=== PATIENT | female | born 1980 | race Caucasian/White ===

== ENCOUNTER 2016-08-16 18:10 | Emergency (ER) | payer BC, MEDICAID ==
[~2016-08-16] VITALS: Ht 172.7 cm; Wt 78.6 kg
[~2016-08-16 18:10] MED LIST: HYDR-3498 PO; PANT40TA3 PO; PREN1TAB17 PO; PREN1TAB49 PO
[2016-08-16 18:13] VITALS: Ht 172.7 cm; Wt 78.6 kg
[2016-08-16] MEDS ORDERED: SOD CHLORIDE 0.9% 1,000 ML IV STA (18:31)
[2016-08-16] MEDS ORDERED: KETOROLAC 30 MG INJ IV STA (18:31)
[2016-08-16] MEDS ORDERED: DIPHENHYDRAMINE 50 MG INJ IV STA (18:31)
[2016-08-16] MEDS ORDERED: METOCLOPRAMIDE 10 MG INJ IV STA (18:31)
[2016-08-16 18:54] LABS: ADD SCAN DIFF NO
[2016-08-16 18:57] LABS: BASOPHIL # 0.1 10^3/ul (0.0-0.1); BASOPHILS % 0.7 % (0.0-2.0); EOSINOPHILS # 0.3 10^3/ul (0.0-0.5); EOSINOPHILS % 3.3 % (0.0-7.0); HEMATOCRIT 39.2 % (37.0-47.0); HEMOGLOBIN 12.6 g/dl (12.0-16.0); LYMPHOCYTES # 2.8 10^3/ul (0.8-2.9); LYMPHOCYTES % 33.2 % (15.0-51.0); MEAN CORPUSCULAR HEMOGLOBIN 29.3 pg (29.0-33.0); MEAN CORPUSCULAR HGB CONC 32.1 g/dl (32.0-37.0); MEAN CORPUSCULAR VOLUME 91.2 fl (82.0-101.0); MONOCYTE # 0.5 10^3/ul (0.3-0.9); MONOCYTES % 5.9 % (0.0-11.0); NEUTROPHIL # 4.7 10^3/ul (1.6-7.5); NEUTROPHILS % 56.7 % (39.0-77.0); PLATELET COUNT 247 10^3/UL (140-415); RED CELL DISTRIBUTION WIDTH 13.7 % (11.5-14.5); WHITE BLOOD COUNT 8.3 10^3/ul (4.8-10.8)
[2016-08-16 19:17] LABS: CALCIUM 9.5 mg/dl (8.4-10.2); CREATININE 0.75 mg/dl (0.44-1.00); POTASSIUM 3.3 mmol/L (3.5-5.1)
--- NOTE | 2016-08-16 19:18 | ERD ---
ER Documentation Chief Complaint Date/Time DATE: 08/16/16 TIME: 19:14 Chief Complaint Complains of left eye pain with a headache HPI This is a 35-year-old female presents to the ER with left-sided headache that radiates around her left eye. Patient states that headache started this morning. Patient states that headache is stabbing in nature, pain has been constant and per patient severe. She does admit to bilateral photophobia. She admits to some nausea however denies vomiting. Patient denies any eye trauma, eye redness, eye discharge. She denies any vision changes, vision loss, seeing halos around lights, floaters. Patient does not have any cough or cold symptoms. She denies any nasal discharge. Patient denies any head trauma. She denies any upper or lower extremity numbness, tingling, weakness. ROS 12 point review of systems was done, all negative except per HPI. Medications Home Meds Active Scripts Ondansetron Hcl* (Zofran*) 4 Mg Tab, 4 MG PO Q4H Y for NAUSEA AND OR VOMITING for 3 Days, TAB Prov:ARSALAN MONTANA 08/16/16 Naproxen* (Naprosyn*) 500 Mg Tablet, 500 MG PO BID Y for PAIN AND/OR INFLAMMATION, #30 TAB Prov:ARSALAN MONTANA 08/16/16 Hydrocodone Bit-Acetaminophen* ([place]*) 5-325 Mg Tab, 1 TAB PO Q4H Y for PAIN, # 14 TAB Prov:MADELINE CUTLER MD 12/07/14 Pantoprazole* (Protonix*) 40 Mg Tablet.dr, 40 MG PO DAILY, #20 TAB Prov:MADELINE CUTLER MD 12/07/14 Reported Medications Vit-Iron Fumarate-FA ( Tablet) 1 Each Tablet, 1 EACH PO DAILY 09/20/12 Vits W-Ca,Fe,Fa(<1MG) () 1 Tab Tablet, 1 TAB PO DAILY 06/15/12 [None] No Conflict Check 03/04/09 Allergies Allergies: Coded Allergies: No Known Allergies (Verified Allergy, Mild, 08/16/16) PMhx/Soc History of Surgery: No Anesthesia Reaction: No Hx Neurological Disorder: No Hx Respiratory Disorders: No Hx Cardiac Disorders: No Hx Psychiatric Problems: No Hx Miscellaneous Medical Probl: No Hx Alcohol Use: No Hx Substance Use: No Hx Tobacco Use: No Smoking Status: Unknown if ever smoked Physical Exam Vitals Vital Signs Date Time Temp Pulse Resp B/P Pulse Ox O2 Delivery O2 Flow Rate FiO2 08/16/16 18:13 98.3 75 20 117/70 100 Physical Exam GENERAL: The patient is well developed and appropriate for usual state of health , in no apparent distress. HEENT: Atraumatic. Conjunctivae are pink. Pupils equal, round, and reactive to light. Extraocular muscles are grossly intact. Bilateral tympanic membranes are clear with no evidence of erythema, bulging or perforation. No sinus tenderness. NECK: C-spine is soft and supple. There is no cervical lymphadenopathy. CHEST: Clear to auscultation bilaterally. There are no rales, wheezes or rhonchi. HEART: Regular rate and rhythm. No murmurs, clicks, rubs or gallops. EXTREMITIES: Equal pulses bilaterally. There is no peripheral clubbing, cyanosis or edema. No focal swelling or erythema. Full range of motion. Grossly neurovascularly intact. NEURO: Alert and oriented. Cranial nerves II through XII are intact. Motor strength in all 4 extremities with 5/5 strength. Sensation grossly intact. Normal speech and gait. Negative Rhomberg. +2 DTRs. SKIN: There is no apparent rash or petechia. The skin is warm and dry. Result Diagram: 08/16/165 08/16/16 1845 Results 24 hrs Laboratory Tests Test 08/16/16 18:45 White Blood Count 8.310^3/ul Red Blood Count 4.3010^6/ul Hemoglobin 12.6g/dl Hematocrit 39.2% Mean Corpuscular Volume 91.2fl Mean Corpuscular Hemoglobin 29.3pg Mean Corpuscular Hemoglobin Concent 32.1g/dl Red Cell Distribution Width 13.7% Platelet Count 39873^3/UL Mean Platelet Volume 11.0fl Neutrophils % 56.7% Lymphocytes % 33.2% Monocytes % 5.9% Eosinophils % 3.3% Basophils % 0.7% Nucleated Red Blood Cells % 0.0/100WBC Neutrophils # 4.710^3/ul Lymphocytes # 2.810^3/ul Monocytes # 0.510^3/ul Eosinophils # 0.310^3/ul Basophils # 0.110^3/ul Nucleated Red Blood Cells # 0.010^3/ul Sodium Level 141mmol/L Potassium Level 3.3mmol/L Chloride Level 104mmol/L Carbon Dioxide Level 28mmol/L Anion Gap 12 Blood Urea Nitrogen 9mg/dl Creatinine 0.75mg/dl Glucose Level 80mg/dl Calcium Level 9.5mg/dl Current Medications Medications (Trade) Dose Ordered Sig/Ruddy Route PRN Reason Start Time Stop Time Status Last Admin Dose Admin Sodium Chloride (NS) 1,000 ml @ 1,000 mls/hr Q1H STAT IV 08/16/16 18:31 08/16/16 19:30 08/16/16 18:52 Metoclopramide HCl (Reglan) 10 mg ONCE STAT IV 08/16/16 18:31 08/16/16 18:36 DC 08/16/16 18:52 Ketorolac Tromethamine (Toradol) 30 mg ONCE STAT IV 08/16/16 18:31 08/16/16 18:36 DC 08/16/16 18:52 Diphenhydramine HCl (Benadryl) 25 mg ONCE STAT IV 08/16/16 18:31 08/16/16 18:36 DC 08/16/16 18:53 Procedures/MDM Differential Diagnosis includes but is not limited to; tension headache, migraine headache, cluster headache, sinus headache, nonspecific febrile headache, trigeminal neurologia, acute angle-closure glaucoma, subdural hematoma , subarachnoid bleeding, meningitis, encephalitis. Patient is neurologically intact with no focal neurological deficits. This is a 35-year-old female presents to the ER with a left-sided headache. Doubt intracranial pathology, as she does not have history of trauma or an abnormal neurological physical examination. Symptoms are consistent with possible migraine headache versus cluster headache. Patient was given Toradol, Zofran, Benadryl. Upon reexamination patient stated that her headache had gotten a lot better. Suspicion for acute angle-closure glaucoma is low patient does not have any risk factors for this. Patient has denied any eye redness, eye discharge or vision loss or vision changes, I doubt ocular emergencies such as retinal detachment, retrobulbar hematoma. Patient is afebrile and well-appearing. Patient will be sent home with naproxen and Zofran. She is to follow-up with her primary care doctor within 1-2 days or return to ER sooner if symptoms worsen. My medical decision making was shared with the patient she understands and agrees with plan. Departure Diagnosis: Primary Impression: Headache Condition: Stable ARSALAN MONTANA Aug 16, 2016 19:18
[2016-08-16] MEDS ORDERED: NAPR-260 PO (19:22)
[2016-08-16] MEDS ORDERED: ONDA-43 PO (19:23)
[2016-08-16 19:41] VITALS: BP 104/68; PULSE 78; RESP 18; TEMP 97.9
== END 2016-08-16 19:42 | disposition home or self-care (01) ==
LOC: FTE 18:10
DX: R51 Headache (principal); R11.0 Nausea
CPT/HCPCS: 80048; 85025; J1200; J1885; J2765; J7030; 36415; 96374; 96375

== ENCOUNTER 2017-08-24 11:30 | Emergency (ER) | END 2017-08-24 14:35 | disposition home or self-care (01) ==

== ENCOUNTER 2017-11-04 19:15 | Emergency (ER) | END 2017-11-04 23:35 | disposition home or self-care (01) ==

== ENCOUNTER 2018-06-03 11:01 | Emergency (ER) | payer BC ==
[~2018-06-03] VITALS: Wt 81.8 kg
[~2018-06-03 11:01] MED LIST changes: +AMOX500C2 PO; +CEPH-443 PO; +IBUP-1542 PO; +NAPR-985 PO; +ONDA4TAB13 PO
[2018-06-03] MEDS ORDERED: DIPHENHYDRAMINE 50 MG INJ IV STA (14:45)
[2018-06-03] MEDS ORDERED: METOCLOPRAMIDE 10 MG INJ IV STA (14:45)
[2018-06-03] MEDS ORDERED: SOD CHLORIDE 0.9% 1,000 ML IV STA (14:45)
[2018-06-03] MEDS ORDERED: KETOROLAC 30 MG INJ IV STA (14:49)
--- NOTE | 2018-06-03 14:55 | ERD ---
ER Documentation Chief Complaint Chief Complaint ACE AND SELENA EAR PRESSURE, NEG NEURO DEF IN TRIAGE HPI This is a 37-year-old female with history of migraine headaches who presents to the ED with complaints of a similar headache today. Patient states her symptoms were gradual onset and started yesterday. No known precipitating or exacerbating factors. She reports a pressure-like sensation behind her eyes that radiates towards the base of her neck, left greater than right. She denies any associated fevers, neck pain, neck stiffness. She does report a sensation of bilateral ear fullness. She took [id number] Tylenol and Motrin without any relief. No associated nausea, vomiting, diarrhea, chest pain, focal neurological deficits, or any other symptoms. ROS All systems reviewed and are negative except as per history of present illness. Medications Home Meds Active Scripts Naproxen* (Naprosyn*) 500 Mg Tablet, 500 MG PO BID PRN for PAIN AND/OR INFLAMMATION, #30 TAB Prov:REYMUNDO SANDOVAL-C 06/03/18 Amoxicillin* (Amoxicillin*) 500 Mg Cap, 500 MG PO BID for 10 Days, CAP Prov:CASEY MATHIS-C 11/04/17 Ibuprofen* (Motrin*) 600 Mg Tab, 600 MG PO Q6, #30 TAB Prov:CASEY MATHISC 11/04/17 Naproxen* (Naprosyn*) 500 Mg Tablet, 500 MG PO BID PRN for PAIN AND/OR INFLAMMATION, #30 TAB Prov:CAT HERNANDEZC 08/24/17 Cephalexin* (Keflex*) 500 Mg Capsule, 500 MG PO QID for 7 Days, CAP Prov:CAT HERNANDEZC 08/24/17 Ondansetron Hcl* (Zofran*) 4 Mg Tab, 4 MG PO Q4H PRN for NAUSEA AND OR VOMITING for 3 Days, TAB Prov:ARSALAN MONTANA 08/16/16 Naproxen* (Naprosyn*) 500 Mg Tablet, 500 MG PO BID PRN for PAIN AND/OR INFLAMMATION, #30 TAB Prov:ARSALAN MONTANA 08/16/16 Hydrocodone Bit-Acetaminophen* ([place]*) 5-325 Mg Tab, 1 TAB PO Q4H PRN for PAIN, #14 TAB Prov:MADELINE CUTLER MD 12/07/14 Pantoprazole* (Protonix*) 40 Mg Tablet.dr, 40 MG PO DAILY, #20 TAB Prov:MADELINE CUTLER MD 12/07/14 Reported Medications Vit-Iron Fumarate-FA ( Tablet) 1 Each Tablet, 1 EACH PO DAILY 09/20/12 Vits W-Ca,Fe,Fa(<1MG) () 1 Tab Tablet, 1 TAB PO DAILY 06/15/12 [None] No Conflict Check 03/04/09 Allergies Allergies: Coded Allergies: No Known Allergies (Verified Allergy, Mild, 08/16/16) PMhx/Soc History of Surgery: No Anesthesia Reaction: No Hx Neurological Disorder: No Hx Respiratory Disorders: No Hx Cardiac Disorders: No Hx Psychiatric Problems: No Hx Miscellaneous Medical Probl: No Hx Alcohol Use: No Hx Substance Use: No Hx Tobacco Use: No Physical Exam Vitals Vital Signs Date Temp Pulse Resp B/P (MAP) Pulse Ox O2 O2 Flow FiO2 Time Delivery Rate 06/03/18 98.1 74 20 121/62 97 11:17 (81) Physical Exam Const: No acute distress Head: Atraumatic Eyes: Normal Conjunctiva ENT: Normal External Ears, Nose and Mouth. Bilateral TMs pearly and bingham. nonbulging, nonerythematous. No sinus tenderness to percussion. Neck: Full range of motion. No meningismus. No lymphadenopathy. Ext: No cyanosis, or edema Neuro: M/S: Alert and oriented Face: EOMI, face and pharynx with normal sensation and function Motor: Normal strength throughout Sensation: Normal sensation throughout Speech: Normal Cerebel: Normal coordination Normal gait Normal finger to nose DTR: 2+ and symmetric upper/lower extremities Psych: Normal Mood and Affect Results 24 hrs Laboratory Tests Test 06/03/18 15:57 POC Beta HCG, Qualitative NEGATIVE Current Medications Medications Dose Sig/Ruddy Start Time Status Last (Trade) Ordered Route PRN Stop Time Admin Dose Reason Admin Sodium 1,000 ml @ Q1H STAT 06/03/18 DC 06/03/18 Chloride 1,000 mls/hr IV 14:45 15:56 06/03/18 15:44 10 mg ONCE STAT 06/03/18 DC 06/03/18 Metoclopramid IV 14:45 15:57 e HCl 06/03/18 14:47 (Reglan) 25 mg ONCE STAT 06/03/18 DC 06/03/18 Diphenhydrami IV 14:45 15:57 ne HCl 06/03/18 14:47 (Benadryl) Ketorolac 15 mg ONCE STAT 06/03/18 DC 06/03/18 Tromethamine IV 14:49 15:57 (Toradol) 06/03/18 14:50 Procedures/MDM ED COURSE: The patient was given 1 L of IV fluids, Toradol, Reglan, Benadryl The medication was well tolerated and the patient had market improvement in symptoms. The patient remained stable throughout ED course. MEDICAL DECISION MAKING: This is a 37-year-old female with history of migraine headaches who presents for exacerbation of her same migraine headaches. Vital signs are stable. No focal neurological deficits on physical exam. Clinical presentation not consistent with subarachnoid hemorrhage, epidural or subdural hematoma, IC mass, CVA, encephalitis or meningitis. Symptoms are most consistent with a primary type headache. She felt significantly better status post IV fluids, Toradol, Reglan, Benadryl as above. She is tolerating oral intake. She does not need any further emergent workup at this time. She will be discharged home with outpatient follow-up and Rx naproxen. Strict return precautions discussed. PRESCRIPTIONS: Naproxen SPECIALIST FOLLOW UP RECOMMENDED: None Patient has been advised to follow up with primary care in 1-2 days. Departure Diagnosis: Primary Impression: Headache Condition: Stable Patient Instructions: Self-Care for Headaches [facility] Additional Instructions: Paciente aconseja volver a Departamento de urgencias inmediatamente para sntomas nuevos o que empeoran . Paciente aconseja posteriores con el PCP en 1-2 [place]. Si el paciente no tiene ninguna de atencin primaria pueden seguir con [facility] [address] [place] [address] o [facility]IN [facility] + [address] [address] REYMUNDO SANDOVAL PA-C Jun 03, 2018 14:55
[2018-06-03] MEDS ORDERED: NAPR-985 PO (16:03)
[2018-06-03 17:45] VITALS: BP 104/68; PULSE 75; RESP 18
== END 2018-06-03 17:48 | disposition home or self-care (01) ==
LOC: FTE 11:01
DX: R51 Headache (principal)
CPT/HCPCS: 81025; 96374; 96375; 99284; J1200; J1885; J2765; J7030